=== PATIENT | male | born 1985 | race Caucasian/White ===

== ENCOUNTER 2018-12-25 19:58 | Emergency (ER) | payer BC ==
[~2018-12-25] VITALS: Ht 182.9 cm; Wt 81.6 kg
[2018-12-25 20:15] VITALS: BP_SYST 156
--- NOTE | 2018-12-25 20:15 | NUR ---
Pt placed to ER hallway bed 1. Pt c/o lower back pain with burning urinations since this AM. Pt states that he also experienced an episode of vomiting after eating cereal today. Pt states that he's only able to urinate small amounts and when he does, it feels like razors.
--- NOTE | 2018-12-25 20:22 | NUR ---
Dr. Pathak at bedside.
--- NOTE | 2018-12-25 20:35 | NUR ---
Urine sample collected, sent to lab. Queta and clear.
--- NOTE | 2018-12-25 20:37 | NUR ---
Pt to CT via W/C.
--- NOTE | 2018-12-25 20:45 | NUR ---
Pt returns from CT.
[2018-12-25 21:02] LABS: BILIRUBIN,URINE NEGATIVE (NEGATIVE); BLOOD, URINE NEGATIVE (NEGATIVE); CLARITY/URINE CLEAR (CLEAR); COLOR,URINE AMBER (YELLOW); GLUCOSE,URINE NEGATIVE (NEGATIVE); KETONES,URINE NEGATIVE (NEGATIVE); LEUKOCYTE ESTERASE ,URINE NEGATIVE (NEGATIVE); NITRITE, URINE NEGATIVE (NEGATIVE); PROTEIN URINE NEGATIVE (NEGATIVE)
[2018-12-25] MEDS ORDERED: KETOROLAC TROMETHAMINE 30 MG VIAL IM ONE (21:15)
[2018-12-25 21:25] VITALS: BP_SYST 128
--- NOTE | 2018-12-25 21:25 | NUR ---
Patient given written and verbal discharge instructions and verbalizes understanding. ER MD discussed with patient the results and treatment provided. Patient in stable condition. ID arm band removed. Rx of Flexeril, Cipro, Ibuprofen given. Patient educated on pain management and to follow up with PMD. Pain Scale 2/10. Opportunity for questions provided and answered. Medication side effect fact sheet provided.
== END 2018-12-25 21:25 | disposition home or self-care (01) ==
LOC: SED 19:58
DX: R30.9 Painful micturition, unspecified (principal); M54.9 Dorsalgia, unspecified
CPT/HCPCS: 74176; 81003; 96372; 99284; J1885

== ENCOUNTER 2019-11-16 14:45 | Emergency (ER) | payer BC ==
[~2019-11-16] VITALS: Ht 182.9 cm; Wt 81.6 kg
[2019-11-16 15:02] VITALS: BP_SYST 133
--- NOTE | 2019-11-16 15:04 | NUR ---
Cornelia dillard in EDM - 11/16/19 at 1520 by [email or web address] JORGE Pathak at bedside examining patient.
--- NOTE | 2019-11-16 15:04 | NUR ---
Note undone in EDM - 11/16/19 at 1520 by [email or web address] Patient arrived in the ED c/o cough, chest congestion, headaches that started 3 days ago - Patient is taking cough meds and OTC cold meds; no relief per patient. Denied any fevers or chills. Patient is alert and oriented x4, respirations even and unlabored, speaking in full sentences, ambulating with a steady gait. VSS, pain level 0/10. Denied any chest pain or SOB. Informed of wait time. Instructed to notify ED staff for any changes in condition or worsening of symptoms. Patient verbalized understanding.
--- NOTE | 2019-11-16 15:06 | NUR ---
Ambulated to bed 8
--- NOTE | 2019-11-16 15:18 | NUR ---
Patient arrived in the ED c/o cough, chest congestion, sinus pain, bodyaches, headaches that started last friday - Patient is taking cough meds and OTC cold meds; no relief per patient. Denied any fevers or chills. Patient is alert and oriented x4, respirations even and unlabored, speaking in full sentences, ambulating with a steady gait. VSS, pain level 8/10. Denied any chest pain or SOB. Informed of wait time. Instructed to notify ED staff for any changes in condition or worsening of symptoms. Patient verbalized understanding.
--- NOTE | 2019-11-16 15:22 | NUR ---
ER TATI Pathak at bedside examining patient.
[2019-11-16] MEDS ORDERED: KETOROLAC TROMETHAMINE 60 MG/2 ML VIAL IM ONE (15:30)
--- NOTE | 2019-11-16 15:41 | NUR ---
Administered Toradol 60mg IM as ordered by ER [employer]ING IN[employer] Stephania Pathak. Patient tolerated the medications well.
--- NOTE | 2019-11-16 15:48 | NUR ---
Patient given written and verbal discharge instructions and verbalizes understanding. ER MD discussed with patient the results and treatment provided. Patient in stable condition. ID arm band removed. Rx of Prednisone and Ibuprofen given. Patient educated on pain management and to follow up with PMD. Pain Scale 0/10. Opportunity for questions provided and answered. Medication side effect fact sheet provided.
[2019-11-16 15:54] VITALS: BP_SYST 133
== END 2019-11-16 15:48 | disposition home or self-care (01) ==
LOC: SED 14:45
DX: J32.9 Chronic sinusitis, unspecified (principal); H60.91 Unspecified otitis externa, right ear; J06.9 Acute upper respiratory infection, unspecified; R03.0 Elevated blood-pressure reading, without diagnosis of hypertension
CPT/HCPCS: 96372; 99283; J1885